=== PATIENT | female | born 1975 | race African-American/Black ===

== ENCOUNTER 2020-07-25 00:31 | Emergency (ER) | payer MEDICAID, OTHER ==
[~2020-07-25] VITALS: Ht 177.8 cm; Wt 99.0 kg
[~2020-07-25 00:31] MED LIST: OXYC-662 PO; PREG200C PO
[2020-07-25] MEDS ORDERED: SODIUM CHLORIDE 0.9% 500 ML IV ONE (01:00)
[2020-07-25 02:29] LABS: HEMATOCRIT. 27.2 % (36.0-48.0); HEMOGLOBIN. 8.4 g/dL (12.0-16.0); MEAN CORPUSCULAR HEMOGLOBIN 18.2 pg (28.0-32.0); MEAN CORPUSCULAR VOLUME 58.8 fL (81.0-99.0); MEAN PLATELET VOLUME 9.1 fl (7.4-10.4); PLATELET 145 x1000/uL (130-400); RED BLOOD CELL COUNT 4.62 mill/uL (4.2-5.4)
[2020-07-25 02:37] LABS: CHLORIDE 107 mEq/L (98-107)
[2020-07-25 02:42] LABS: ETHANOL BLOOD < 10 mg/dL
[2020-07-25 02:45] LABS: HCG SCREEN NEGATIVE
[2020-07-25 04:36] LABS: PLATELET ESTIMATE NORMAL
[2020-07-25 05:17] VITALS: BP 138/82
[2020-07-25 06:04] LABS: CLARITY URINE CLEAR (CLEAR); COLOR URINE YELLOW (YELLOW); KETONES URINE NEGATIVE (NEGATIVE); LEUKOCYTE ESTERASE URINE TRACE (NEGATIVE); NITRITE URINE NEGATIVE (NEGATIVE); OCCULT BLOOD URINE NEGATIVE (NEGATIVE); PROTEIN URINE TRACE (NEGATIVE); SPECIFIC GRAVITY URINE 1.017 (1.005-1.030)
[2020-07-25 06:29] LABS: *BARBITURATES SCREEN URINE NEGATIVE (NEGATIVE)
[2020-07-25 06:30] LABS: *AMPHETAMINES SCREEN URINE NEGATIVE (NEGATIVE); *BENZODIAZEPINES SCREEN URINE NEGATIVE (NEGATIVE)
[2020-07-25 06:31] LABS: METHADONE URINE SCREEN NEGATIVE (NEGATIVE); PHENCYCLIDINE URINE SCREEN NEGATIVE (NEGATIVE)
[2020-07-25 06:36] LABS: *COCAINE SCREEN URINE PRESUMTIVE POSITIVE (NEGATIVE); CANNABINOID URINE SCREEN PRESUMTIVE POSITIVE (NEGATIVE); OPIATES URINE SCREEN PRESUMTIVE POSITIVE (NEGATIVE)
== END 2020-07-25 05:18 | disposition home or self-care (01) ==
LOC: ER 00:31
DX: D64.9 Anemia, unspecified (principal); R00.0 Tachycardia, unspecified; F11.10 Opioid abuse, uncomplicated
CPT/HCPCS: 36415; 80053; 80305; 80320; 81003; 83880; 84484; 84703; 85025; 93005; 96360; 99284; J7040; G0480